=== PATIENT | male | born 1965 | race Caucasian/White ===

== ENCOUNTER 2018-12-20 04:19 | Emergency (ER) | payer MEDICARE, OTHER ==
[~2018-12-20] VITALS: Ht 177.8 cm; Wt 133.0 kg
[2018-12-20 04:52] LABS: BASOPHILS % 0.6 % (0.0-2.0); EOSINOPHILS % 0.8 % (0.0-5.0); HEMATOCRIT. 41.4 % (42.0-52.0); LYMPHOCYTES % 25.8 % (20.0-50.0); MEAN CORPUSCULAR HEMOGLOBIN 32.3 pg (28.0-32.0); MEAN CORPUSCULAR VOLUME 95.3 fL (80.0-94.0); MEAN PLATELET VOLUME 7.2 fl (7.4-10.4); NEUTROPHILS % 65.8 % (40.0-76.0); PLATELET 274 x1000/uL (130-400); RED BLOOD CELL COUNT 4.34 mill/uL (4.7-6.1); RED CELL DISTRIBUTION WIDTH 14.5 % (11.6-14.6)
[2018-12-20 05:02] LABS: CHLORIDE 106 mEq/L (98-107)
[2018-12-20 05:03] VITALS: BP 143/91
[2018-12-20 05:06] LABS: ETHANOL BLOOD < 10 mg/dL
== END 2018-12-20 05:02 | disposition left against medical advice (07) ==
LOC: ER 04:39
DX: R46.2 Strange and inexplicable behavior (principal)
CPT/HCPCS: 36415; 80320; 99283; G0480